=== PATIENT | female | born 1955 | race Caucasian/White ===

== ENCOUNTER → 2019-01-23 | Outpatient (CLI) | payer OTHER ==
[~2019-01-23] MED LIST: HYDROCHLOROTH12.5 M1 PO; NORVASC2.5 MG PO
== END ==
LOC: M.MRI 16:06
DX: M17.11 Unilateral primary osteoarthritis, right knee (principal); M23.92 Unspecified internal derangement of left knee; M25.861 Other specified joint disorders, right knee